=== PATIENT | male | born 1965 | race Caucasian/White ===

== ENCOUNTER → 2019-08-23 08:03 | Outpatient (BNVA) | payer OTHER, SELFPAY | PROVIDERS: Family Provider Nurse Practitioner Family; Referring Provider Family Medicine; Visit Provider Specialist | DX: G43.711 Chronic migraine without aura, intractable, with status migrainosus (principal); F17.210 Nicotine dependence, cigarettes, uncomplicated | CPT/HCPCS: 99204 ==

== ENCOUNTER 2019-10-01 14:56 | Emergency (ER) | payer OTHER, SELFPAY ==
[2019-10-01 15:05] VITALS: BP 141/78; PULSE 85; RESP 18; TEMP 36.3; O2SAT 96; BMI 27.8
--- NOTE | 2019-10-01 15:33 | W.ED.WOUNDLC ---
HPI - Wound/Laceration General: Chief Complaint: Wound/Laceration Stated Complaint: head lac Time Seen by Provider: 10/01/19 15:33 Source: patient Mode of arrival: ambulatory Limitations: no limitations History of Present Illness: HPI narrative: Patient comes in for the ER to a skin wound to the scalp of the left top side of the head. Patient denies LOC. Patient reports no blood thinners. Patient reports mild headache but not abnormal for him. Patient does need a tetanus shot. Review of Systems General: Reports: 10 or more systems reviewed and unremarkable except in HPI and below Skin/Breast: Reports: other (Scalp laceration) [facility] ED PFSH: Family History Other CAD (coronary artery disease) Cancer Diabetes Social History Smoking and tobacco status: current some day smoker cigarettes Packs smoked per day: 0.5 Physical Exam Const: COMMON NORMALS: no acute distress and patient oriented x3 GENERAL APPEARANCE: cooperative HENMT: COMMON NORMALS: normocephalic, TM's normal bilaterally and Normal external nose present HEAD & SCALP: normal to inspection and normocephalic NOSE: Normal external nose present TYMPANIC MEMBRANE: TM's normal bilaterally MOUTH: Normal oral and palatal mucosa present Eye: GENERAL EYE: appearance normal, both eyes and all related structures Neck/C-Spine: COMMON NORMALS: full ROM Chest: COMMONS NORMALS: normal inspection of the chest Resp: COMMON NORMALS: normal respiratory effort EFFORT & INSPECTION: Yes able to speak in complete sentences Cardio: COMMON NORMALS: regular rate and regular rhythm RATE: regular rate RHYTHM: regular rhythm GI: COMMON NORMALS: non-tender : COMMON NORMALS: Yes no CVA tenderness BLADDER/KIDNEY EXAM: Yes no CVA tenderness Back/Pelvis: COMMON NORMALS: no CVA tenderness and thoracic and lumbar spine normal to inspection Extremity: COMMON NORMALS: normal to inspection Neuro: COMMON NORMALS: patient oriented x3 and moves all extremities Psych: COMMON NORMALS: mental status grossly normal and cooperative Skin: NARRATIVE SKIN EXAM: Superficial 4 cm laceration/abrasion to the left top of head. No surrounding crepitus or depression of the skull. Course Vital Signs: Vital signs: Vital Signs Temperature 97.3 F L 10/01/19 15:05 Pulse Rate 85 10/01/19 15:05 Respiratory Rate 18 10/01/19 15:36 Blood Pressure 141/78 10/01/19 15:05 Pulse Oximetry 96 10/01/19 15:05 MDM - Wound/Laceration MDM Narrative: Medical decision making narrative: Patient comes in for evaluation of wound to the top of the head. Patient appears well. Patient has a 4 cm abrasion to the scalp. No significant wound for his repair. Differential diagnosis includes skull fracture, intracranial bleeding, laceration, abrasion. Exam notes no significant neural abnormalities or signs of fracture. Reviewed with patient with recommendations for follow-up or return to the ER. Patient reported understanding agreed to plan. Wound was superficial and not requiring suture repair. Discharge Plan Discharge Patient Disposition: Home, Self-Care Clinical Impression: Laceration Condition: Stable Prescriptions: No Action cyclobenzaprine 10 mg tablet 10 mg PO TID RF: 0 lubiprostone 8 mcg capsule 8 mcg PO BID RF: 0 ibuprofen [IBU] 600 mg tablet 600 mg PO Q8H PRNRF: 0 docusate sodium 100 mg capsule 100 mg PO BID RF: 0 omeprazole magnesium 20 mg tablet,delayed release (DR/EC) 20 mg PO DAILY RF: 0 aspirin [Adult Aspirin Regimen] 81 mg tablet,delayed release (DR/EC) 81 mg PO DAILY RF: 0 morphine 30 mg capsule, ER multiphase 24 hr 30 mg PO BID RF: 0 hydrocodone-acetaminophen [[place]] 10-325 mg tablet 1 tab PO Q6H PRNRF: 0 topiramate [Topamax] 100 mg tablet 150 mg PO DAILY RF: 0 Discharge Orders: Discharge Order (Routine); Ordered 10/01/19 Ordered By: Noel James Referrals: Carlota Chen APN [Family Provider] - Discharge Diet: Usual diet Discharge Activity: Increase activity as tolerated Activity Restrictions/Additional Instructions: Keep wound clean and dry as much as possible. Apply antibiotic ointment 2 times a day to the site until healed. Drink plenty of water. Keep wound out of direct sunlight. Follow-up with primary care in 1 week. Return to the emergency department for high fever or signs of infection. Coding Level of Care Code ED Filler Shredding Machine Loader for Nneka Fwjesusita Exam Comprehensive
[2019-10-01 15:36] VITALS: RESP 18
[2019-10-01] MEDS: neomycin-poly-bacitracin oint 0.9 gm Pkt 1 APPLIC TOPICAL (15:48)
[2019-10-01] MEDS: tetanus-dipt-pertussis 0.5 mL SDV IM (15:49)
[2019-10-01 16:01] VITALS: BP 157/91; PULSE 62; RESP 18; O2SAT 98
== END 2019-10-01 16:02 | disposition home or self-care (01) ==
LOC: ER 16:06
PROVIDERS: Emergency Provider Nurse Practitioner Family; Family Provider Nurse Practitioner Family
DX: S01.01XA Laceration without foreign body of scalp, initial encounter (principal); X58.XXXA Exposure to other specified factors, initial encounter; Z79.82 Long term (current) use of aspirin; F17.210 Nicotine dependence, cigarettes, uncomplicated; Z23 Encounter for immunization
CPT/HCPCS: 12345; 90471; 90715; 99283

== ENCOUNTER → 2020-06-14 09:41 | Outpatient (BNVA) | payer OTHER, SELFPAY | PROVIDERS: Family Provider Nurse Practitioner Family; PCP Family Medicine; Visit Provider Specialist | DX: G43.711 Chronic migraine without aura, intractable, with status migrainosus (principal); F17.210 Nicotine dependence, cigarettes, uncomplicated | CPT/HCPCS: 99213 ==

== ENCOUNTER 2020-08-23 12:29 | Outpatient (RCR) | payer OTHER, SELFPAY | END 2020-09-11 23:59 | disposition home or self-care (01) | LOC: SPT 12:29 | PROVIDERS: Family Provider Nurse Practitioner Family; PCP Family Medicine; Referring Provider Family Medicine; Visit Provider Family Medicine | DX: M25.561 Pain in right knee (principal) | CPT/HCPCS: 97110; 97161 ==

== ENCOUNTER 2020-09-12 06:00 | Outpatient (RCR) | payer OTHER, SELFPAY | END 2020-10-11 23:59 | disposition home or self-care (01) | LOC: SPT 06:00 | PROVIDERS: Family Provider Nurse Practitioner Family; PCP Family Medicine; Referring Provider Family Medicine; Visit Provider Family Medicine | DX: M25.561 Pain in right knee (principal) | CPT/HCPCS: 97032; 97110 ==

== ENCOUNTER → 2020-10-25 08:04 | Outpatient (BNVA) | payer OTHER, SELFPAY | PROVIDERS: Family Provider Nurse Practitioner Family; PCP Family Medicine; Visit Provider Specialist | DX: G43.711 Chronic migraine without aura, intractable, with status migrainosus (principal); Z71.89 Other specified counseling; F17.210 Nicotine dependence, cigarettes, uncomplicated | CPT/HCPCS: 99213 ==

== ENCOUNTER → 2020-11-30 13:43 | Outpatient (BNVA) | payer OTHER, SELFPAY | PROVIDERS: Family Provider Nurse Practitioner Family; PCP Family Medicine; Visit Provider Specialist | DX: G43.711 Chronic migraine without aura, intractable, with status migrainosus (principal); Z71.89 Other specified counseling; F17.210 Nicotine dependence, cigarettes, uncomplicated | CPT/HCPCS: 64615; J0585 ==

== ENCOUNTER → 2021-03-01 11:45 | Outpatient (BNVA) | payer OTHER, SELFPAY | PROVIDERS: Family Provider Nurse Practitioner Family; PCP Family Medicine; Visit Provider Specialist | DX: G43.711 Chronic migraine without aura, intractable, with status migrainosus (principal); Z71.89 Other specified counseling | CPT/HCPCS: 64615; J0585 ==

== ENCOUNTER → 2021-05-24 13:43 | Outpatient (BNVA) | payer OTHER, SELFPAY | PROVIDERS: Family Provider Nurse Practitioner Family; PCP Family Medicine; Visit Provider Specialist | DX: G43.711 Chronic migraine without aura, intractable, with status migrainosus (principal); F17.210 Nicotine dependence, cigarettes, uncomplicated | CPT/HCPCS: 64615; J0585 ==

== ENCOUNTER → 2021-08-16 08:49 | Outpatient (BNVA) | payer OTHER, SELFPAY | PROVIDERS: Family Provider Nurse Practitioner Family; PCP Family Medicine; Visit Provider Specialist | DX: G43.711 Chronic migraine without aura, intractable, with status migrainosus (principal) | CPT/HCPCS: 64615; J0585 ==

== ENCOUNTER → 2022-08-29 11:40 | Outpatient (BNVA) | payer OTHER, SELFPAY | PROVIDERS: Family Provider Nurse Practitioner Family; PCP Family Medicine; Visit Provider Specialist | DX: G43.711 Chronic migraine without aura, intractable, with status migrainosus (principal) | CPT/HCPCS: 64615; J0585 ==

== ENCOUNTER → 2022-11-28 11:47 | Outpatient (BNVA) | payer OTHER, SELFPAY | PROVIDERS: Family Provider Nurse Practitioner Family; PCP Family Medicine; Visit Provider Specialist | DX: G43.711 Chronic migraine without aura, intractable, with status migrainosus (principal) | CPT/HCPCS: 64615; J0585 ==

== ENCOUNTER → 2023-02-27 10:39 | Outpatient (BNVA) | payer OTHER, SELFPAY | PROVIDERS: Family Provider Nurse Practitioner Family; PCP Family Medicine; Visit Provider Specialist | DX: G43.711 Chronic migraine without aura, intractable, with status migrainosus (principal) | CPT/HCPCS: 64615; 95911; J0585 ==

== ENCOUNTER → 2023-06-19 14:42 | Outpatient (BNVA) | payer OTHER, SELFPAY | PROVIDERS: Family Provider Nurse Practitioner Family; PCP Emergency Medicine Emergency Medical Services; Visit Provider Specialist | DX: G43.711 Chronic migraine without aura, intractable, with status migrainosus (principal) | CPT/HCPCS: 64615; J0585 ==

== ENCOUNTER → 2023-10-09 10:04 | Outpatient (BNVA) | payer OTHER, SELFPAY | PROVIDERS: Family Provider Nurse Practitioner Family; Visit Provider Specialist | DX: G43.711 Chronic migraine without aura, intractable, with status migrainosus (principal) | CPT/HCPCS: 64615; J0585 ==

== ENCOUNTER → 2024-01-08 10:48 | Outpatient (BNVA) | payer OTHER, SELFPAY | PROVIDERS: Family Provider Nurse Practitioner Family; PCP Nurse Practitioner Family; Visit Provider Specialist | DX: M47.812 Spondylosis without myelopathy or radiculopathy, cervical region (principal); M47.12 Other spondylosis with myelopathy, cervical region; G43.711 Chronic migraine without aura, intractable, with status migrainosus | CPT/HCPCS: 64615; 99213; J0585 ==

== ENCOUNTER 2024-01-26 07:15 | Outpatient (CLI) | payer OTHER, SELFPAY ==
--- NOTE | 2024-01-26 07:15 | MR_ITS ---
WS: [id number] MRI CERVICAL SPINE NONCONTRAST TECHNIQUE: Sagittal T1, T2 and STIR imaging. Axial T2, gradient, and fiesta imaging. CLINICAL INFORMATION: M47.812 - Spondylosis without myelopathy or radiculopathy... COMPARISON: None. FINDINGS: Straightening the normal cervical lordosis. Moderate spondylitic changes. Small disc osteophyte protr usions throughout the cervical spine. C2-C3: Moderate facet arthropathy. Mild LEFT bony foraminal narrowing. C3-C4: Disc osteophyte complex with endplate ridging. Mild central canal stenosis. Mild to moderate b ilateral bony foraminal narrowing. C4-C5: Disc osteophyte complex with moderate central canal stenosis. Indentation of the LEFT cervical cord. Trace myomalacia in the cervical cord. Severe LEFT and moderate RIGHT bony foraminal narrowing . Uncovertebral joint hypertrophy. Mild facet arthropathy. C5-C6: Disc osteophyte complex with mild central canal stenosis. Severe LEFT greater than RIGHT bony foraminal narrowing. Uncovertebral joint hypertrophy. Mild facet arthropathy. C6-C7: Disc osteophyte complex with mild central canal stenosis. Moderate to severe bilateral bony fo raminal narrowing LEFT greater than RIGHT. Mild facet arthropathy. C7-T1: Tiny central disc protrusion. Spinal canal and foramen are patent. Visualized brain stem structures: Normal. Prevertebral soft tissues: Normal. MR/MR cervical spin wo con* [id number] IMPRESSION: 1. Moderate central canal stenosis C4-5 due to disc osteophyte protrusion with indentation on the cervical cord. Trace myelomalacia in the cervical cord. 2. Mild central canal stenosis C3 C4-C5-C6 and C6-C7. 3. Multilevel moderate to severe bony foraminal narrowing LEFT C4-C5, bilatera l C5-C6 and bilateral C6-C7. 4. Slight facet synovitis RIGHT C5-6.
== END 2024-01-26 07:16 | disposition home or self-care (01) ==
PROVIDERS: Family Provider Nurse Practitioner Family; PCP Nurse Practitioner Family; Visit Provider Specialist
DX: M47.812 Spondylosis without myelopathy or radiculopathy, cervical region (principal); M99.61 Osseous and subluxation stenosis of intervertebral foramina of cervical region; M25.78 Osteophyte, vertebrae
CPT/HCPCS: 72141

== ENCOUNTER → 2024-02-17 07:57 | Outpatient (BNVA) | payer OTHER, SELFPAY | PROVIDERS: Family Provider Nurse Practitioner Family; PCP Nurse Practitioner Family; Visit Provider Orthopaedic Surgery | DX: M54.2 Cervicalgia (principal) | CPT/HCPCS: 72050; 99204 ==

== ENCOUNTER 2024-02-27 10:27 | Emergency (ER) | payer OTHER, SELFPAY ==
[2024-02-27 10:33] VITALS: BP 121/81; PULSE 67; RESP 17; TEMP 36.4; O2SAT 100; BMI 30.1
[2024-02-27 11:39] LABS: Basophils # 0.1 10^3/uL (0.0-0.1); Basophils % 0.6 %; Eosinophils # 0.2 10^3/uL (0.0-0.8); Eosinophils % 2.3 %; Hematocrit 45.5 % (37-53); Lymphocytes # 1.3 10^3/uL (0.8-4.8); Lymphocytes % 14.9 %; Mean Corpuscular HGB Conc 32.7 g/dL (30-55); Mean Corpuscular Hemoglobin 30.3 pg (27-33); Mean Corpuscular Volume 92.5 fl (82-101); Mean Platelet Volume 9.3 fL (7.4-10.4); Monocytes # 0.7 10^3/uL (0.2-0.9); Monocytes % 7.6 %; Neutrophils # 6.55 10^3/uL (1.8-7.7); Neutrophils % 73.9 %; Nucleated Red Blood Cells % 0 %; Platelet Count 362 10^3/cmm (157-399); Red Blood Count 4.92 10^6/uL (3.85-5.65); Red Cell Distribution Width 13.1 % (12.1-15.1); White Blood Count 8.85 10^3/uL (3.29-11.43)
[2024-02-27 11:57] LABS: Alanine Aminotransferase 99 U/L (0-41); Albumin Level 4.2 g/dL (3.5-5.2); Alkaline Phosphatase 108 U/L (40-130); Anion Gap 12.7 (5-19); Aspartate Amino Transferase 46 U/L (0-40); Blood Urea Nitrogen 21 mg/dL (6-20); Calcium 9.5 mg/dL (8.5-10.5); Carbon Dioxide 28 mmol/L (22-29); Chloride 101 mmol/L (98-107); Globulin 3.4 g/dL (1.3-4.6); Glomerular Filtration Rate 86.4 mL/min (90-130); Glucose 123 mg/dL (65-115); Magnesium 2.3 mg/dL (1.7-2.3); Osmolality Calculated 288 mOsm/kg (285-295); Potassium 4.7 mmol/L (3.5-5.1); Sodium 137 mmol/L (136-145); Total Bilirubin 0.2 mg/dL (0.15-1.2); Total Protein 7.6 g/dL (6.6-8.7)
[2024-02-27 13:41] VITALS: BP 130/72; PULSE 74; RESP 19; O2SAT 93
--- NOTE | 2024-02-27 13:44 | USR_ITS ---
PROCEDURE INFORMATION: Exam: US Duplex Left Lower Extremity Arteries Or Arterial Bypass Grafts Exam date and time: 02/27/2024 2:37 PM Age: 58 years old Clinical indication: Other: Muscle crmaps; Additional info: Muscle cramps TECHNIQUE: Imaging protocol: Left Real-time duplex scan of the arteries or arterial bypass grafts of the left lower extremity with 2-D easley scale, color Doppler flow and spectral waveform analysis. Images documented and saved. COMPARISON: No relevant prior studies available. FINDINGS: Left external iliac artery: Normal waveform. Peak velocity 63 cm/s. No visible luminal narrowing in the left external iliac artery. Left common femoral artery: Normal waveform. Peak velocity 55 cm/s. No visible luminal narrowing in the left common femoral artery. Left superficial femoral artery: Normal waveform. Peak velocity 70 cm/s. No visible luminal narrowing in the left superficial femoral artery. Left popliteal artery: Normal waveform. Peak velocity 81 cm/s. No visible luminal narrowing in the left popliteal artery. Left calf/foot arteries: Normal waveform with peak velocity 66 cm/s in the left posterior tibial artery. Normal waveform with peak velocity 54 cm/s in the left dorsalis pedis artery. No visible luminal narrowing the left infrapopliteal arteries. Other findings: Ankle brachial index is normal (1.1). US/CV arterial duplex [facility] [id number] IMPRESSION: No sign of hemodynamically significant stenosis in the left lower extremity.
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
--- NOTE | 2024-02-27 15:17 | XRR_ITS ---
PROCEDURE INFORMATION: Exam: XR Left Femur Exam date and time: 02/27/2024 3:42 PM Age: 58 years old Clinical indication: Pain; Thigh; Left; Prior surgery; Surgery date: 6+ months; Surgery type: Knee TECHNIQUE: Imaging protocol: Radiologic exam of the left femur. Views: 2 views. COMPARISON: [place] [id number] 02/27/2024 2:37 PM FINDINGS: Bones/joints: Intact well-aligned left hip prosthesis. No sign of loosening. Intact well-aligned total knee prosthesis. No sign of loosening. No acute fracture. Soft tissues: Visible soft tissues are unremarkable. Vasculature: Vascular calcification is present. XR/XR femur LT min 2V* [id number] IMPRESSION: No acute findings.
[2024-02-27 15:51] LABS: Bilirubin Urine Negative (Negative); Blood Urine Non-haemolysed trace (Negative); Glucose Urine UA Negative (Normal); Ketones Urine Negative (Negative); Leukocyte Esterase Urine Negative (Negative); Nitrate Urine Negative (Negative); Protein Urine Negative (Negative); Specific Gravity, Urine 1.012 (1.005-1.030); Urine Appearance Clear (CLEAR); Urine Color Yellow (Yellow); Urobilinogen Urine 0.2 mg/dL (Negative)
[2024-02-27 15:53] LABS: Add Urine Microscopic? YES; Bacteria Urine None Seen /hpf; Hyaline Casts Urine 4.11 /lpf; Squamous Epithelial Cell Urine 0-5 /hpf (0-5); WBC Urine 0-5 /hpf (0-5)
[2024-02-27 16:16] VITALS: BP 129/71; PULSE 71; O2SAT 96
== END 2024-02-27 16:17 | disposition home or self-care (01) ==
PROVIDERS: Emergency Medicine; Orthopaedic Surgery; Emergency Provider Physician Assistant; PCP Nurse Practitioner Family
DX: M79.652 Pain in left thigh (principal); Z79.82 Long term (current) use of aspirin; F17.210 Nicotine dependence, cigarettes, uncomplicated; I25.10 Atherosclerotic heart disease of native coronary artery without angina pectoris; E11.9 Type 2 diabetes mellitus without complications
CPT/HCPCS: 73552; 80053; 81001; 83735; 85025; 93926; 99284

== ENCOUNTER → 2024-04-16 10:07 | Outpatient (BNVA) | payer OTHER, SELFPAY | PROVIDERS: PCP Nurse Practitioner Family; Visit Provider Specialist | DX: G43.711 Chronic migraine without aura, intractable, with status migrainosus (principal); M47.12 Other spondylosis with myelopathy, cervical region | CPT/HCPCS: 64615; 80053; 81003; 85025; 99213; J0585 ==

== ENCOUNTER 2024-04-21 10:32 | Inpatient (IN) | payer OTHER, SELFPAY ==
[2024-04-21] VITALS (23 sets, daily range): BP systolic 134–169; BP diastolic 74–134; PULSE 74–105; RESP 15–18; TEMP 36.2–36.5; O2SAT 91–98; BMI 31.2
--- NOTE | 2024-04-21 | XR_ITS ---
WS: [id number] C-ARM RADIOGRAPHS CERVICAL SPINE; 3 IMAGES HISTORY: MELCHOR PICS COMPARISON: None available. Intraoperative imaging during anterior cervical spine fusion. Hardware extends from C3-C7. Patient is intubated. Interbody spacers are also noted at at C3-4, C4-5 and C5-6 and C6-7. XR/XR cervical spine 3V* [id number] IMPRESSION: Intraoperative imaging during anterior cervical fusion.
--- NOTE | 2024-04-21 06:37 | W.PM.OPSUD ---
Surgery/Procedure H&P Update DATE OF PROCEDURE: April 21, 2024 DATE H&P PERFORMED: 04/16/24 H&P UPDATE INFORMATION: I have reviewed H&P completed within last 30 days, I have examined patient prior to procedure and No changes to prior documentation PLANNED PROCEDURE: Operation Date: 04/21/24 07:00 Proposed Procedures p Anterior Cervical Discectomy & Fusion ACDF w/ Anterior Interbody Fusion w/ Cage w/ Instrumentation w/ Allograft w/ Navigation(Not Applicable) - Jaime Crawford DO
[2024-04-21] MEDS: sodium chloride 0.9% 1,000 ML 30 ML IV (06:38)
[2024-04-21] MEDS: methadone 10 mg Tablet PO (06:44)
--- NOTE | 2024-04-21 06:45 | ANES.PREANE2 ---
Pre-Anesthetic Assessment Height/Weight: Height 1.78 m Weight 98.883 kg Temp Pulse Resp BP Pulse Ox O2 Del Method 97.4 F L 87 18 153/100 98 Room Air 04/21/24 06:16 04/21/24 06:16 04/21/24 06:44 04/21/24 06:16 04/21/24 06:44 04/21/24 06:16 Operation Date: 04/21/24 07:00 Proposed Procedures p Anterior Cervical Discectomy & Fusion ACDF w/ Anterior Interbody Fusion w/ Cage w/ Instrumentation w/ Allograft w/ Navigation(Not Applicable) - Jaime Crawford DO Familial anesthetic complications: none Was Beta Francesca taken within 24 hours: N/A (Has been out of prescription for a week) Was Clonidine taken within 24 hours: N/A Last intake: Intake Last Liquid Date 04/20/24 Last Liquid Time 21:00 Last Solid Date 04/20/24 Last Solid Time 20:00 Social Tobacco and No alcohol Exam alert, oriented x 3 and regular rate & rhythm Airway Submandibular: within normal limits Cervical ROM: Other (Some limitation to extension, no increases symptoms) Mallampati: Class II Dentition: false Pulmonary Chronic Obstructive Pulmonary Disease CV/HEM Hypertension Neuropsych Chronic pain/opioid Anesthetic Plan ASA status: 3 Anesthesia: General Medications/Allergies Home Medications Medication Instructions Recorded Confirmed Last Taken Type metoprolol tartrate 50 mg tablet 50 mg PO BID 03/01/21 04/20/24 04/15/24 History aripiprazole 10 mg tablet (Abilify) 10 mg PO BEDTIME 04/16/24 04/21/24 04/20/24 History atomoxetine 40 mg capsule 80 mg PO DAILY 04/16/24 04/20/24 04/21/24 History fluoxetine 20 mg capsule 60 mg PO DAILY 04/16/24 04/20/24 04/21/24 History methocarbamol 750 mg tablet 750 mg PO TID PRN Muscle Spasm 04/16/24 04/20/24 04/21/24 History ropinirole 1 mg tablet 1 mg PO .qhs 04/16/24 04/20/24 04/20/24 History testosterone 1.62 % (20.25 mg/1.25 2 packet transdermal DAILY 04/16/24 04/20/24 04/21/24 History gram) transdermal gel packet trazodone 100 mg tablet 100 mg PO BID PRN Sleep 04/16/24 04/20/24 Unknown History Thc 25 mg PO DAILY 04/21/24 04/21/24 04/20/24 History Allergies Allergy/AdvReac Type Severity Reaction Status Date / Time escitalopram Allergy Alopecia Verified 04/16/24 11:46 meperidine Allergy Nausea and Verified 04/16/24 11:46 Vomiting nortriptyline Allergy tremor Verified 04/16/24 11:46 sumatriptan Allergy shortness Verified 04/16/24 11:46 of breath gabapentin AdvReac tremor Verified 04/16/24 11:46 dermabond Allergy Unknown Uncoded 04/16/24 11:46 Current Medications Generic Name Dose Route Start Last Admin Trade Name Freq PRN Reason Stop Dose Admin Sodium Chloride 1,000 mls @ 30 mls/hr 04/21/24 06:00 04/21/24 06:38 Sodium Chloride 0.9% IV 04/22/24 05:59 30 mls/hr .Q24H DANNI Administration PFSH Anesthesia Family History Other CAD (coronary artery disease) Cancer Diabetes Social History Smoking and tobacco/nicotine status: current every day tobacco/nicotine user cigarettes Packs smoked per day: 0.5 Data Anesthesia Cardiac Studies: No Data to Display
[2024-04-21] MEDS: ceFAZolin 2,000 mg SDV 2000 MG IVP ×3 (07:00→21:55)
[2024-04-21] MEDS: lidocaine-epi 1% 20 mL INJ 10 ML INJECTION (08:18)
--- NOTE | 2024-04-21 10:30 | PM.OP ---
Operative Report Date of procedure: April 21, 2024 Pre-op diagnosis: Cervical spondylosis with myelopathy Post-op diagnosis: same Procedure done: 1. Anterior discectomy C3/4 2. Anterior discectomy C4/5 3. Anterior diskectomy C5/6 4. Anterior discectomy C6/7 5. Insertion of cage C3/4 6. Insertion of cage C4/5 7. Insertion of cage C5/6 8. Insertion of Cage C6/7 9. Instrumentation with anterior plate from C3-C7 10. Use of allograft Surgeon: Jaime Crawford DO Estimated blood loss (mL): 25 Procedure: 1. Anterior discectomy C3/4 2. Anterior discectomy C4/5 3. Anterior diskectomy C5/6 4. Anterior discectomy C6/7 5. Insertion of cage C3/4 6. Insertion of cage C4/5 7. Insertion of cage C5/6 8. Insertion of Cage C6/7 9. Instrumentation with anterior plate from C3-C7 10. Use of allograft The patient was taken to the operating room, where he underwent general endotracheal anesthesia without complications. He was then positioned supine on the operating table, and all areas of impingement were well padded. The arms were carefully padded and tucked at his sides. A roll was placed between the shoulder blades.. An x-ray was done to determine the appropriate level for the skin incision. The entire neck was then sterilely prepped and draped in the usual fashion. Neuromonitoring was attached prior to prepping. A transverse skin incision was made and carried down to the platysma muscle. This was then split in line with its fibers. Blunt dissection was carried down medial to the carotid sheath and lateral to the trachea and esophagus until the anterior cervical spine was visualized. A needle was placed into a disc and an x-ray was done to determine its location. The longus colli muscles were then elevated bilaterally with the electrocautery unit. Self-retaining retractors were placed deep to the longus colli muscle. Attention was brought to the C3/4 level that was confirmed on x-ray. A caspar pin was placed into the C3 vertebrae and the C4 vertebrae. The disk space was then distracted. The microscope was then brought in. A radical anterior discectomies were performed at C3/4. This included complete removal of the anterior annulus, nucleus, and posterior annulus. The posterior longitudinal ligament was removed as were the posterior osteophytes. Foraminotomies were then accomplished bilaterally. This was done using a high speed elva, kerrison rongeurs and curretes Once all of this was accomplished, the curved currette was used to check for any residual compression. The central canal was wide open as were the foramen. A high-speed bur was used to remove the cartilaginous endplates above and below the interspace. Bleeding cancellous bone was exposed. The disc space were measured and appropriate size cage were placed sterilely onto the field. Allograft graft was packed into the cages. The cage was then placed and there was good juxtaposition against the bleeding decorticated surfaces and good distraction of each interspace. Attention was brought to the next interspace. The [place] pins were removed. Bone wax was used to prevent any bleeding from occurring at the pin sites. Attention was brought to the C4/5 level that was confirmed on x-ray. A caspar pin was placed into the C4 vertebrae and the C5 vertebrae. The disk space was then distracted. The microscope was then brought in. A radical anterior discectomies were performed at C4/5. This included complete removal of the anterior annulus, nucleus, and posterior annulus. The posterior longitudinal ligament was removed as were the posterior osteophytes. Foraminotomies were then accomplished bilaterally. This was done using a high speed elva, kerrison rongeurs and curretes Once all of this was accomplished, the curved currette was used to check for any residual compression. The central canal was wide open as were the foramen. A high-speed bur was used to remove the cartilaginous endplates above and below the interspace. Bleeding cancellous bone was exposed. The disc space were measured and appropriate size cage were placed sterilely onto the field. Allograft graft was packed into the cages. The cage was then placed and there was good juxtaposition against the bleeding decorticated surfaces and good distraction of each interspace. Attention was brought to the next interspace. The [place] pins were removed. Bone wax was used to prevent any bleeding from occurring at the pin sites. Attention was brought to the C5/6 level that was confirmed on x-ray. A caspar pin was placed into the C5 vertebrae and the C6 vertebrae. The disk space was then distracted. The microscope was then brought in. A radical anterior discectomies were performed at C5/6. This included complete removal of the anterior annulus, nucleus, and posterior annulus. The posterior longitudinal ligament was removed as were the posterior osteophytes. Foraminotomies were then accomplished bilaterally. This was done using a high speed elva, kerrison rongeurs and curretes Once all of this was accomplished, the curved currette was used to check for any residual compression. The central canal was wide open as were the foramen. A high-speed bur was used to remove the cartilaginous endplates above and below the interspace. Bleeding cancellous bone was exposed. The disc space were measured and appropriate size cage were placed sterilely onto the field. Allograft graft was packed into the cages. The cage was then placed and there was good juxtaposition against the bleeding decorticated surfaces and good distraction of each interspace. Attention was brought to the next interspace. The [place] pins were removed. Bone wax was used to prevent any bleeding from occurring at the pin sites. Attention was brought to the C6/7 level that was confirmed on x-ray. A caspar pin was placed into the C6 vertebrae and the C7 vertebrae. The disk space was then distracted. The microscope was then brought in. A radical anterior discectomies were performed at C6/7. This included complete removal of the anterior annulus, nucleus, and posterior annulus. The posterior longitudinal ligament was removed as were the posterior osteophytes. Foraminotomies were then accomplished bilaterally. This was done using a high speed elva, kerrison rongeurs and curretes Once all of this was accomplished, the curved currette was used to check for any residual compression. The central canal was wide open as were the foramen. A high-speed bur was used to remove the cartilaginous endplates above and below the interspace. Bleeding cancellous bone was exposed. The disc space were measured and appropriate size cage were placed sterilely onto the field. Allograft graft was packed into the cages. The cage was then placed and there was good juxtaposition against the bleeding decorticated surfaces and good distraction of each interspace. The [place] pins were removed. Bone wax was used to prevent any bleeding from occurring at the pin sites. The appropriate size anterior cervical locking plate was chosen and bent into gentle lordosis. Two screws were then placed into each of the vertebral bodies at C3, C4, C5, C6 and C7. There was excellent purchase. A final x-ray was done confirming good position of the hardware and Cages. The locking screws were then applied, also with excellent purchase. Following a final copious irrigation, there was good hemostasis and no dural leaks. The carotid pulse was strong. The wounds were then closed in layers using 2-0 Vicryl suture for the platysma muscle, 2-0 Vicryl suture for the subcutaneous tissue, and 4-0 monocryl suture in a subcuticular skin closure. Glue was placed followed by application of a sterile dressing. The drain was hooked to bulb suction. A soft collar was applied. The patient was then carefully returned to the supine position on his hospital bed where he was reversed and extubated and taken to the recovery room having tolerated the procedure well.
[2024-04-21] MEDS: lactated ringers 1,000 ML 90 ML IV (11:47)
--- NOTE | 2024-04-21 13:28 | ANE.PACU2 ---
Inpatient post-anesthesia follow up: Airway intact: Yes Vital signs: Temperature 97.4 F Pulse Rate 83 Respiratory Rate 16 Blood Pressure 148/91 Pulse Oximetry 93 Oxygen Delivery Me thod Nasal Cannula Oxygen Flow Rate 8 Fraction of Inspir ed Oxygen Hydration adequate: Yes Nausea and vomiting: No Pain level: 3 Mental status: Baseline
[2024-04-21] MEDS: morphine 4 mg/mL SDV 1 mL IVP ×2 (13:56→21:55)
[2024-04-21] MEDS: HYDROcodone-acetaminophen 5-325 mg Tablet PO (14:39)
[2024-04-21] MEDS: ketorolac 30 mg/mL INJ IVP (14:39)
[2024-04-21] MEDS: docusate sodium 100 mg Capsule PO (18:08)
[2024-04-21] MEDS: metoprolol tartrate 50 mg Tablet PO (18:10)
[2024-04-21] MEDS: ropinirole 1 mg Tablet PO (21:55)
[2024-04-21] MEDS: ARIPiprazole 10 mg Tablet PO (21:55)
[2024-04-21] MEDS: trazodone 100 mg Tablet PO (21:55)
[2024-04-22 00:19] VITALS: RESP 18
[2024-04-22] MEDS: lactated ringers 1,000 ML 90 ML IV (00:19)
[2024-04-22 03:52] VITALS: RESP 18
[2024-04-22] MEDS: morphine 4 mg/mL SDV 1 mL IVP (03:52)
[2024-04-22 04:00] VITALS: BP 132/76; PULSE 83; RESP 17; TEMP 36.3; O2SAT 95
[2024-04-22 06:27] VITALS: RESP 18
[2024-04-22] MEDS: ceFAZolin 2,000 mg SDV 2000 MG IVP (06:27)
[2024-04-22 07:48] VITALS: BP 134/83; PULSE 81; RESP 16; TEMP 36.4; O2SAT 95
--- NOTE | 2024-04-22 08:18 | P.DS_ITS ---
Discharge Providers Date of Admission: 04/21/24 10:32 Date of Discharge: April 22, 2024 Attending Provider at Admission: Jaime Crawford DO Attending Provider at Discharge: Jaime Crawford DO Primary Care Provider: Magaly Horner APRN Reason for Visit Reason for Visit: M48.02 Physical Exam Narrative: Doing well sitting up swallowing no complaints of pain or swallowing issues. Ambulating Urinary Catheter Management: Mckeon: Cath Placed During This Visit: yes, but has since been removed by the nurse Reason for Continuing Indwelling Catheter: Decision to DC Catheter Urinary Catheter Date of Insertion: 04/21/24 Urinary Catheter Time of Insertion: 07:15 Date Urinary Catheter Removed: 04/22/24 Time Urinary Catheter Discontinued: 06:09 Discharge Data Studies Completed and Pending Pending at discharge Category Date Time Status C-arm Fluoroscopy 13860 Routine Exams 04/21/24 06:03 Taken Vitals Last Vital Signs Temp 97.5 F L 04/22/24 07:48 Pulse 81 04/22/24 07:48 Resp 16 04/22/24 07:48 BP 134/83 04/22/24 07:48 Pulse Ox 95 04/22/24 07:48 O2 Del Method Nasal Cannula 04/22/24 07:48 O2 Flow Rate 2 04/22/24 07:48 Discharge Plan Discharge Patient Disposition: Home Prescriptions: New hydrocodone-acetaminophen 5-325 mg tablet 1 - 2 tab PO .Q4-6H Qty: 40 0RF Continued metoprolol tartrate 50 mg tablet 50 mg PO BID trazodone 100 mg tablet 100 mg PO BID PRN (Reason: Sleep) ropinirole 1 mg tablet 1 mg PO .qhs methocarbamol 750 mg tablet 750 mg PO TID PRN (Reason: Muscle Spasm) fluoxetine 20 mg capsule 60 mg PO DAILY aripiprazole [Abilify] 10 mg tablet 10 mg PO BEDTIME atomoxetine 40 mg capsule 80 mg PO DAILY testosterone 1.62 % (20.25 mg/1.25 gram) gel in packet 2 packet transdermal DAILY Rx Instructions: apply 20.25 mg /1 packet to max area of EACH upper arm and shoulder Thc 25 mg PO DAILY Rx Instructions: GUMMIES FOR PAIN Discharge Orders: Discharge Order (Routine); Ordered 04/22/24 Ordered By: Jaime Crawford Discharge Diet: Advance as tolerated Discharge Activity: Limit activity as instructed Patient Instructions: Acute Wound Care (DC), Opioid Safety, Post Anesthesia Care Activity Restrictions/Additional Instructions: Thank you for choosing [facility] for your care! The following is a list of instructions, from your provider, to follow upon your discharge to ensure you have the optimal recovery from your recent injury or surgery. Anterior Cervical Discectomy and Fusion: What to Expect at Home Your Recovery Follow-up care is a godinez part of your treatment and safety. Be sure to make and go to all appointments, and call your doctor if you are having problems. If you do not already have a follow-up appointment made, call office in the next 1-3 days to make follow up appointment for 2 weeks at [phone]. It is also a good idea to know your test results and keep a list of the medicines you take. You can expect your neck to feel stiff or sore after surgery. This should improve in the weeks after surgery. But it may take 4 to 6 months for you to get better completely. You may have trouble sitting or standing in one position for very long and may need pain medicine in the weeks after your surgery. It may take 4 to 6 weeks to get back to your usual activities, but it may depend on what kind of surgery you had. Your throat will feel sore and it may be difficult to swallow for the first 3 days after your surgery. As long as you can get liquids down without difficulty, this should slowly improve, otherwise call our office or seek medical attention if it becomes increasingly difficult to get anything down including liquids. Avoid hot liquids for first 3-5 days. Soothing foods/liquids such as jello, pudding, and luke warm soups are recommended until swallowing improves. Staying elevated will also help, it's advised you keep propped up at while sleeping to help reduce the swelling. You may use an ice pack directly on your incision or around it on the front of your neck, using a cloth to protect your skin; and a heating pad to the back of your neck as needed. Do not use over the counter anti-inflammatory medications (Ibuprofen, Motrin, Aleve, Advil, etc) Taking these meds after having a fusion can delay fusion rates, we recommend you avoid them for the first 3 [address] after your surgery[address] Dr. Crawford may advise you to work with a physical therapist to strengthen the muscles around your neck and back - this will be discussed at your follow - up appointments. The pain or numbness you were having in your arms before surgery should get better or go away completely. This care sheet gives you a general idea about how long it will take for you to recover. But each person recovers at a different pace. Follow the steps below to get better as quickly as possible. How can you care for yourself at home? Activity ? Rest when you feel tired. Getting enough sleep will help you recover. ? Try to walk each day. Start by walking a little more than you did the day before. Bit by bit, increase the amount you walk. Walking boosts blood flow and helps prevent pneumonia and constipation. Walking may also decrease your muscle soreness after surgery. ? No lifting anything that is more that 5 pounds. This may include heavy grocery bags and milk containers, a heavy briefcase or backpack, cat litter or dog food bags, a child, or a vacuum still cleaner. ? Avoid strenuous activities, such as bicycle riding, jogging, weightli fting, or aerobic exercise, until your doctor says it is okay. ? Do not drive until your follow-up visit after your surgery, or until your doctor says it isokay. ? Avoid taking long car trips for 2 to 4 weeks after surgery. Your neck may become tired and painful from sitting too long in one position. ? You will probably need to take 4 to 6 weeks off from work. It depends on the type of work you do and how you feel. ? You may have sex as soon as you feel able, but avoid positions that put stress on your neck or cause pain. Diet ? You can eat your normal diet. If your stomach is upset, try bland, low-fat foods like plain rice, broiled chicken, toast, and yogurt ? Drink plenty of fluids. If you have kidney, heart, or liver disease and have to limit fluids, talk with your doctor before you increase the amount of fluids you drink. ? You may notice that your bowel movements are not regular right after your surgery. This is common. Try to avoid constipation and straining with bowel movements. You may want to take a fiber supplement every day. If you have not had a bowel movement after a couple of days, ask your doctor about taking a mild laxative. Medicines ? Take pain medicines exactly as directed. 1. If Dr. Crawford gave you a prescription medicine for pain, take lt as prescribed. 2. Do not take two or more pain medicines at the same time unless the doctor told you to. Many pain medicines have acetaminophen, which is Tylenol. Too much acetaminophen {Tylenol) can be harmful. 3. If you think your pain pill is making you sick to your stomach: 4. Take your pills after meals (unless your doctor has told you not to). 5. Ask your Dr. for a different pain pill. Incisioncare ? Remove your dressing 48hours after your surgery. Ok to shower and get the incision wet. Do not overtly wash your incision. When done, pad dry, leave open to air thereafter. Avoid creams and ointments directly on your incision. ? Your sutures in the incision will dissolve and fall out on their own. ? Keep the area clean and dry. You may cover it with a gauze bandage if it weeps or rubs against clothing; if you choose to do this, change the dressing everyday. Other instructions ? Use a heating pad, hot water bottle, or gentle massage on your back to reduce stiffness. Avoid putting heat on your incision When should you call for help? ? Call 911 anytime you think you may need emergency care. For example, call if: ? You pass out (lose consciousness). ? You have sudden chest pain and shortness of breath, or you cough upblood. ? You cannot swallow. ? You have severe pain in your neck or back. ? Call your Dr. or seek immediate medical care if: ? You have pain that does not get better after you take pain pills. ? You have loose stitches, or your incision comes open. ? You have blood or fluid draining from the incision. ? You have signs of infection, such as: 1. Increased pain, swelling, warmth, or redness. 2. Red streaks leading from the site. 3. Pus draining from the site. 4. Swollen lymph nodes in your neck or armpits. 5. A fever. ? You have severe pain in your arms. ? You have new or increased weakness or numbness in your arms. ? Watch closely for any changes in your health, and be sure to contact your doctor if: ? You do not have a bowel movement after taking a laxative. Discharge Attestations Time Spent in Discharge Care*: other Quality Metrics Clinical Quality Measures [ No reported AMI, CVA or VTE this stay] Coding Level of Care Code Acute Code for Chg Fwd
[2024-04-22] MEDS: metoprolol tartrate 50 mg Tablet PO (09:10)
[2024-04-22] MEDS: docusate sodium 100 mg Capsule PO (09:10)
[2024-04-22] MEDS: atomoxetine 40 mg Capsule 80 MG PO (09:10)
[2024-04-22] MEDS: fluoxetine 20 mg Capsule 60 MG PO (09:10)
--- NOTE | 2024-04-22 09:28 | PC.NURSE ---
Hemovac pulled and 2x2 with foam tape applied. Pt tolerated well
[2024-04-22 10:52] VITALS: BP 134/83; PULSE 81; RESP 16; TEMP 36.4; O2SAT 95
== END 2024-04-22 10:50 | disposition home or self-care (01) | DRG 473 ==
LOC: MEDSURG 15:12
PROVIDERS: Admitting Provider Orthopaedic Surgery; PCP Nurse Practitioner Family; Visit Provider Orthopaedic Surgery
PROC: 0RB30ZZ Excision of Cervical Vertebral Disc, Open Approach (ICD-10-PCS; CPT 22551; principal; 2024-04-21 07:00)
DX: M47.12 Other spondylosis with myelopathy, cervical region (principal); M48.02 Spinal stenosis, cervical region
CPT/HCPCS: 51702; 72040; 76000; 97110; 97161; C1713; C1763; C9359; J0131; J0330; J0690; J1100; J1171; J1885; J2250; J2270; J2405; J2704; J2710; J3010; J3490; J7030; J7120

== ENCOUNTER → 2024-05-06 08:23 | Outpatient (BNVA) | payer OTHER, SELFPAY | PROVIDERS: PCP Nurse Practitioner Family; Visit Provider Orthopaedic Surgery | DX: Z98.1 Arthrodesis status (principal) | CPT/HCPCS: 99024 ==

== ENCOUNTER → 2024-05-25 07:44 | Outpatient (BNVA) | payer OTHER, SELFPAY | PROVIDERS: PCP Nurse Practitioner Family; Visit Provider Orthopaedic Surgery | DX: Z98.1 Arthrodesis status (principal) | CPT/HCPCS: 72040; 99024 ==

== ENCOUNTER → 2024-06-08 08:15 | Outpatient (BNVA) | payer OTHER, SELFPAY | PROVIDERS: PCP Nurse Practitioner Family; Visit Provider Orthopaedic Surgery | DX: Z98.1 Arthrodesis status (principal) | CPT/HCPCS: 72040; 99024 ==

== ENCOUNTER → 2024-06-22 12:39 | Outpatient (BNVA) | payer OTHER, SELFPAY | PROVIDERS: PCP Nurse Practitioner Family; Visit Provider Orthopaedic Surgery | DX: Z98.1 Arthrodesis status (principal) | CPT/HCPCS: 72040; 99024 ==

== ENCOUNTER → 2024-07-20 12:59 | Outpatient (BNVA) | payer OTHER, SELFPAY | PROVIDERS: PCP Nurse Practitioner Family; Visit Provider Orthopaedic Surgery | DX: Z98.1 Arthrodesis status (principal) | CPT/HCPCS: 72040; 99024 ==

== ENCOUNTER → 2024-07-23 10:29 | Outpatient (BNVA) | payer OTHER, SELFPAY | PROVIDERS: PCP Nurse Practitioner Family; Visit Provider Specialist | DX: G43.711 Chronic migraine without aura, intractable, with status migrainosus (principal) | CPT/HCPCS: 64615; J0585; J9999 ==

== ENCOUNTER → 2024-10-21 10:46 | Outpatient (BNVA) | payer OTHER, SELFPAY | PROVIDERS: PCP Nurse Practitioner Family; Visit Provider Specialist | DX: G43.711 Chronic migraine without aura, intractable, with status migrainosus (principal); M47.12 Other spondylosis with myelopathy, cervical region | CPT/HCPCS: 64615; 72040; 99213; J0585; J9999 ==

== ENCOUNTER → 2024-11-09 14:46 | Outpatient (BNVA) | payer OTHER, SELFPAY | PROVIDERS: PCP Nurse Practitioner Family; Visit Provider Orthopaedic Surgery | DX: T84.7XXA Infection and inflammatory reaction due to other internal orthopedic prosthetic devices, implants and grafts, initial encounter (principal); M79.602 Pain in left arm; Z01.818 Encounter for other preprocedural examination; X58.XXXA Exposure to other specified factors, initial encounter | CPT/HCPCS: 36415; 73090; 80053; 81001; 85025; 99214 ==

== ENCOUNTER 2024-11-12 09:31 | Day surgery (SDC) | payer OTHER, SELFPAY ==
[2024-11-12] VITALS (20 sets, daily range): BP systolic 118–158; BP diastolic 64–106; PULSE 79–96; RESP 10–25; TEMP 36.6–37; O2SAT 93–98; BMI 32.3; BMI 31.4
--- NOTE | 2024-11-12 10:16 | W.PM.OPSUD ---
Surgery/Procedure H&P Update DATE OF PROCEDURE: November 12, 2024 DATE H&P PERFORMED: 11/09/24 H&P UPDATE INFORMATION: I have reviewed H&P completed within last 30 days, I have examined patient prior to procedure and No changes to prior documentation PREOP DIAGNOSIS: Infected hardware left arm PLANNED PROCEDURE: Operation Date: 11/12/24 11:35 Proposed Procedures p Hardware Removal Wrist Hardware Removal Plate/Screws Of Ulna(Left) - Jaime Crawford DO
--- NOTE | 2024-11-12 10:36 | ANES.PREANE2 ---
Pre-Anesthetic Assessment Height/Weight: Height 1.8 m Weight 102.058 kg Temp Pulse Resp BP Pulse Ox O2 Del Method 98.2 F 92 16 158/100 97 Room Air 11/12/24 09:56 11/12/24 09:56 11/12/24 09:56 11/12/24 09:56 11/12/24 09:56 11/12/24 10:19 Preop Diagnosis: Infected hardware left arm Operation Date: 11/12/24 11:35 Proposed Procedures p Hardware Removal Wrist Hardware Removal Plate/Screws Of Ulna(Left) - Jaime Crawford, Familial anesthetic complications: none Last intake: Intake Last Liquid Date 11/11/24 Last Liquid Time 23:55 Last Solid Date 11/11/24 Last Solid Time 23:55 Social Alcohol (3 beers per week. Hx ETOH abuse) and Tobacco 1 PPD - quit pack(s) per day 30 years pack years Exam alert, oriented x 3, clear to auscultation bilaterally and regular rate & rhythm Airway Submandibular: within normal limits Cervical ROM: Other (LROM - hx fx neck) Mallampati: Class III Dentition: other (implants full upper and lower) History/ROS No significant history except as noted Pulmonary Chronic Obstructive Pulmonary Disease and Exertional Dyspnea CV/HEM None reported None reported Hepatic None reported GI None reported Metabolic None reported Musc/skel None reported (hx head injury) Neuropsych None reported Anesthetic Plan ASA status: 3 Anesthesia: General Risk of > 500 ml blood loss (7ml/kg in children): No Medications/Allergies Home Medications ?Medication ?Instructions ?Recorded ?Confirmed ?Last Taken ?Type metoprolol tartrate 50 mg tablet 50 mg PO BID 03/01/21 11/11/24 11/11/24 History testosterone 1.62 % (20.25 mg/1.25 2 packet transdermal DAILY 04/16/24 11/11/24 11/11/24 History gram) transdermal gel packet Thc 25 mg PO 3XD 04/21/24 11/11/24 11/11/24 History Allergies Allergy/AdvReac Type Severity Reaction Status Date / Time escitalopram Allergy Alopecia Verified 11/09/24 15:12 meperidine Allergy Nausea and Verified 11/09/24 15:12 Vomiting nortriptyline Allergy tremor Verified 11/09/24 15:12 sumatriptan Allergy shortness Verified 11/09/24 15:12 of breath gabapentin AdvReac tremor Verified 11/09/24 15:12 dermabond Allergy Unknown Uncoded 11/09/24 15:12 Current Medications Generic Name Dose Route Start Last Admin Trade Name Gutierrezq PRN Reason Stop Dose Admin Sodium Chloride 1,000 mls @ 30 mls/hr 11/12/24 09:45 11/12/24 10:22 Sodium Chloride 0.9% IV 11/13/24 09:44 30 mls/hr .Q24H DANNI Administration PFSH Anesthesia Family History Other CAD (coronary artery disease) Cancer Diabetes Social History Smoking and tobacco/nicotine status: current every day tobacco/nicotine user cigarettes Packs smoked per day: 0.5
[2024-11-12] MEDS: ceFAZolin 2,000 mg SDV 2000 MG IVP (11:09)
[2024-11-12] MEDS: tobramycin 40 mg/mL SDV 2mL 120 MG XX (11:20)
--- NOTE | 2024-11-12 11:47 | PM.OP ---
Operative Report Date of procedure: November 12, 2024 Pre-op diagnosis: Infected hardware in the left ulna Post-op diagnosis: same Procedure done: 1. Removal of deep hardware from left ulna 2. Irrigation debridement down to bone of left ulna Surgeon: Jaime Crawford DO Estimated blood loss (mL): 5 Procedure: 1. Removal of deep hardware from left ulna 2. Irrigation debridement down to bone of left ulna Patient is brought the operative suite after undergoing anesthesia was placed in the supine position. All areas of impingement were well-padded. Patient was prepped and draped in normal sterile fashion. Skin incisions made using the previous skin incision over the left ulna. Incision was approximately 8 inches long. There is a track there is a sinus this was elevated and then the plate was identified using elevators to open up the ulnar bone and the plate is on the ulna. The screws were backed out there is thick screws removed and then the plate was removed. The bone was then curetted to bleeding bone and the screw holes were irrigated and washed out and curetted out. And then calcium sulfate beads with tobramycin and vancomycin were placed into the wound. The wound was then closed in a layered fashion with 0 Vicryl 2-0 Vicryl and Monocryl. Sterile dressings were placed patient was placed in an ulnar gutter splint and then transferred to the PACU in stable condition.
--- NOTE | 2024-11-12 12:18 | PC.NURSE ---
oral airway removed at 1209 when pt opened mouth and spit it out.
[2024-11-12] MEDS: morphine 4 mg/mL SDV 1 mL 2 MG IVP ×5 (12:25→13:12)
--- NOTE | 2024-11-12 12:29 | PC.NURSE ---
morphine pulled and given at 1226
[2024-11-12] MEDS: HYDROcodone-acetaminophen 5-325 mg Tablet 2 TAB PO (13:55)
--- NOTE | 2024-11-12 14:05 | ANE.PACU2 ---
Inpatient post-anesthesia follow up: Airway intact: Yes Vital signs: Temperature 98 F Pulse Rate 88 Respiratory Rate 17 Blood Pressure 128/93 Pulse Oximetry 95 Oxygen Delivery Me thod Room Air Oxygen Flow Rate 6 Fraction of Inspir ed Oxygen Hydration adequate: Yes Nausea and vomiting: No Pain level: 1 Mental status: Baseline
--- NOTE | 2024-11-12 14:27 | PC.NURSE ---
ROM and capillary refill < 3 sec on fingers of Left hand. Plan of care reviewed with patient prior to discharge.
== END 2024-11-12 14:05 | disposition home or self-care (01) ==
PROVIDERS: PCP Family Medicine Geriatric Medicine; Visit Provider Orthopaedic Surgery
PROC: (CPT 20680; principal; 2024-11-12 11:25)
DX: T84.7XXA Infection and inflammatory reaction due to other internal orthopedic prosthetic devices, implants and grafts, initial encounter (principal); Z98.890 Other specified postprocedural states; J44.9 Chronic obstructive pulmonary disease, unspecified; F17.210 Nicotine dependence, cigarettes, uncomplicated
CPT/HCPCS: 20680; 87070; 87075; 87205; C1776; J0690; J1100; J2250; J2270; J2405; J2704; J3010; J3260; J3373; J7030; J9999

== ENCOUNTER 2024-11-23 16:11 | Outpatient (CLI) | payer OTHER, SELFPAY | END 2024-11-23 16:12 | disposition home or self-care (01) | LOC: SPT 16:12 | PROVIDERS: PCP Family Medicine Geriatric Medicine; Visit Provider Orthopaedic Surgery | DX: Z46.89 Encounter for fitting and adjustment of other specified devices (principal); S52.92XD Unspecified fracture of left forearm, subsequent encounter for closed fracture with routine healing; X58.XXXD Exposure to other specified factors, subsequent encounter | CPT/HCPCS: 99024; L3908 ==

== ENCOUNTER → 2024-12-07 10:25 | Outpatient (BNVA) | payer OTHER, SELFPAY | PROVIDERS: PCP Family Medicine Geriatric Medicine; Visit Provider Orthopaedic Surgery | DX: Z98.890 Other specified postprocedural states (principal) | CPT/HCPCS: 99024 ==

== ENCOUNTER → 2024-12-21 13:37 | Outpatient (BNVA) | payer OTHER, SELFPAY | PROVIDERS: PCP Family Medicine Geriatric Medicine; Visit Provider Orthopaedic Surgery | DX: Z98.890 Other specified postprocedural states (principal); Z48.89 Encounter for other specified surgical aftercare | CPT/HCPCS: 99024 ==

== ENCOUNTER → 2025-02-03 13:14 | Outpatient (BNVA) | payer OTHER, SELFPAY | PROVIDERS: PCP Family Medicine Geriatric Medicine; Visit Provider Specialist | DX: G43.711 Chronic migraine without aura, intractable, with status migrainosus (principal); M47.12 Other spondylosis with myelopathy, cervical region | CPT/HCPCS: 64615; J0585; J9999 ==

== ENCOUNTER → 2025-02-10 13:36 | Outpatient (BNVA) | payer OTHER, SELFPAY | PROVIDERS: PCP Family Medicine Geriatric Medicine; Visit Provider Orthopaedic Surgery | DX: Z98.890 Other specified postprocedural states (principal) | CPT/HCPCS: 73090; 99024 ==